=== PATIENT | male | born 1945 | race Caucasian/White ===

== ENCOUNTER 2018-03-25 | Inpatient (IN) | payer OTHER ==
[2018-03-25] VITALS (7 sets, daily range): BP systolic 101–136; BP diastolic 57–80
--- NOTE | ~2018-03-25 | CON ---
[place], [place] REPORT OF CONSULTATION NAME: CHUNG ARNOLD UNIT #: [id number] ROOM: 401 DOCTOR: MARY RENEE MD BIRTHDATE: [birth year] DOS: 03/25/2018 HISTORY OF PRESENT ILLNESS: This is a 72-year-old patient who presented with history of profound anemia, GI bleed, history of Coumadin toxicity few days ago and that has been corrected to 2.6 INR and the patient has been sent in for further evaluation through the Emergency Room if guaiac positivity. At such a time a panel of blood work was done and there was a CBC on 03/25/2018 is reviewed. White blood cell of 5, H and H of 7.9 and 25, transfusion has been organized with a PT of 28.8 second, and INR 2.6. PAST MEDICAL HISTORY: Associated with GI bleed. INR toxicity, hyperlipidemia, coronary artery disease, hypertension, congestive heart failure, history in the past, atrial fibrillation. PAST SURGICAL HISTORY: Aortic valve prosthesis, prostatectomy, lung surgery, details unknown, CABG. SOCIAL HISTORY: Nonsmoker, nonalcohol consumer. FAMILY HISTORY: Noncontributory, supportive family at bedside. ALLERGIES: DIGOXIN. MEDICATIONS: List has been reviewed. Coumadin at the present time on hold. The patient on omeprazole 20 mg daily. REVIEW OF SYSTEMS: HEAD, EYES, EARS, NOSE, AND THROAT: Denies double vision, blurred vision. RESPIRATORY: Denies acute shortness of breath. CARDIOVASCULAR: Denies chest pain. DIGESTIVE SYSTEM: GI bleed. PHYSICAL EXAMINATION: VITAL SIGNS: Stable. Alert and coherent. HEAD, EYES, EARS, NOSE, AND THROAT: Head normocephalic, nontraumatic. Mouth and buccal mucosa benign. NECK: Supple, no thyromegaly. No cervical lymphadenopathy. CHEST: Symmetric anatomy, equal expansion. No wheeze, no rhonchi. HEART: Irregular irregularity and moderate ventricular response atrial fibrillation. ABDOMEN: Soft. No hepato-organomegaly. Bowel sounds present. No pulsatile mass. EXTREMITIES: No cyanosis, no pedal edema. NEUROLOGIC: Alert, oriented to time, place, and person. LABORATORY DATA: Reviewed, records reviewed. IMPRESSION: Gastrointestinal bleed, history of Coumadin toxicity in the past and correction, atrial fibrillation, hyperlipidemia, and hypertension. [place], [place] REPORT OF CONSULTATION NAME: CHUNG ARNOLD UNIT #: [id number] ROOM: 401 DOCTOR: VÍCTOR MADRIGAL,MARY BIRTHDATE: [birth year] OTHER ADJUNCTIVE DIAGNOSES: As outlined in paragraph of past medical history including anemia, coronary artery disease. He is getting transfusion. PLAN AND DISCUSSION: We are going to proceed with the EGD, source of bleeding to be investigated. He has had recent colonoscopy. The patient has presented with GI bleed, anemia for transfusion. Today's procedure part of investigation is panendoscopy plus photographic series. PREMEDICATION: Propofol. SCOPE: Olympus forward-viewing gastroscope Q10 video. REPORT: After putting the patient in left lateral position and application of lubricant to the scope, the scope was introduced. Thereafter, under direct visualization, I advanced through the length of esophagus without difficulty. Small hiatal hernia was noticed. Gastric pouch was entered. Multiple areas of gastric erosions and small blood clots in the stomach was noticed. Photographed. No biopsy obtained due to the fact the patient's INR is still prolonged, duodenal free of active bleeding event. GI reflection confirms small hiatal hernia. Air was suctioned out. The patient was extubated, tolerated the procedure well. IMPRESSION: Small hiatal hernia, gastritis, gastric erosions, multiple small clots in the stomach. No active bleeding. PLAN AND DISCUSSION: We are going to withhold aspirin products and anticoagulants. We are going to proceed with soft diet and we are going to cover him with Protonix 40 mg IV b.i.d. in addition of Carafate 2 grams slurry q.i.d. for 2 weeks' duration and after that maintenance Protonix once a day. Apparently, omeprazole 20 mg is not helping the status, p.r.n. and reassessment of H and H and INR periodically. MARY RENEE MD CM:CONSTR:REPORT OF CONSULTATION 1603 04/03/18 0732 interface
--- NOTE | ~2018-03-25 | EKG ---
[place], [place] ELECTROCARDIOGRAM REPORT NAME: CHUNG ARNOLD UNIT #: [id number] ROOM: 401 DOCTOR: DUGLAS DRAFT REPORT BIRTHDATE: [birth year] [facility] Test Date: 2018-03-25 Test Time: 12:57:13 Pat Name: CHUNG ARNOLD Department: Room: 401 Gender: M Youth Pastor: SAI : 1945 Requested By: JOSE ALBERTO COATES Order Number: [id number] Reading MD: Mor Seymour MD Measurements Intervals Caret Rate: 76 P: -43 [place]: 135 QRS: -52 QRSD: 142 T: 129 QT: 435 QTc: 490 Interpretive Statements ATRIAL FIBRILLATION LVH with IVCD, LAD and secondary repol abnrm No previous ECG available for comparison Electronically Signed On 03-28-2018 8:23:58 PST by Mor Seymour MD CM:EKGRPT:ELECTROCARDIOGRAM REPORT [id number] JOSE ALBERTO ARDON DRAFT REPORT JOSE ALBERTO COATES M.D.
[2018-03-25] MEDS ORDERED: ATORVASTATIN CA10 M1 PO (12:12)
[2018-03-25] MEDS ORDERED: FERRACTIV IRON1 EACH PO (12:13)
[2018-03-25] MEDS ORDERED: CARVEDILOL25 MG PO (12:13)
[2018-03-25] MEDS ORDERED: VITAMIN D31000 UNIT PO (12:14)
[2018-03-25] MEDS ORDERED: TORSEMIDE20 MG PO (12:14)
[2018-03-25] MEDS ORDERED: HYDRALAZINE HYD50 MG PO (12:15)
[2018-03-25] MEDS ORDERED: INSPRA25 MG PO (12:15)
[2018-03-25] MEDS ORDERED: K-TAB20 MEQ PO (12:19)
[2018-03-25] MEDS ORDERED: OMEPRAZOLE MAGN20 MG PO (12:20)
[2018-03-25 12:27] LABS: BASO % 0.4 % (0.0-1.0); EOS # 0.1 10*3/uL (0.0-0.4); EOS % 1.6 % (1.0-4.0); HEMATOCRIT 25.1 % (42.0-52.0); HEMOGLOBIN 7.9 g/dl (14.0-18.0); LYMPH # 0.3 10*3/uL (1.3-4.4); LYMPH % 5.3 % (27.0-41.0); MEAN CELL VOLUME 88.4 fl (80.0-94.0); MEAN CORPUSCULAR HGB 27.8 pg (27.0-31.0); MEAN CORPUSCULAR HGB CONC 31.5 g/dl (33.0-37.0); MEAN PLATELET VOLUME 9.7 fl (9.6-12.3); MONO # 0.5 10*3/uL (0.1-1.0); NEUT # 4.2 10*3/uL (2.3-7.9); NEUT % 82.5 % (47.0-73.0); PLATELET COUNT AUTOMATED 167 10*3/uL (130-400); RED BLOOD COUNT 2.84 10*6/uL (4.50-5.90); RED CELL DISTRI WIDTH 15.6 % (0-14.5); WHITE BLOOD COUNT 5.1 10*3/uL (4.8-10.8)
[2018-03-25 12:35] LABS: INTERNATIONAL NORM RATIO 2.6 (2.0-3.5)
--- NOTE | 2018-03-25 14:19 | NUR ---
[facility] 72, admitted to , under the services of HEIDY Nathan DO with a diagnosis of GI BLEED. Chief complaint is DENIES. Patient arrived via bed from ER. Monitor applied. Initial assessment completed. Vital signs taken and recorded. HEIDY NATHAN DO notified of admission to the unit. Orders received. See assessment for past medical history, medications and allergies. Patient and/or family oriented to unit. [facility] visitation policy reviewed. Clothing/patient valuable form completed. KARTHIKEYAN PARDO
--- NOTE | 2018-03-25 15:11 | NUR ---
OFF FLOOR TO SURGERY
[2018-03-25 20:50] LABS: HEMATOCRIT 26.9 % (42.0-52.0); HEMOGLOBIN 8.9 g/dl (14.0-18.0)
[2018-03-26] VITALS: BP 127/73
[2018-03-26 06:28] LABS: BASO % 0.4 % (0.0-1.0); EOS # 0.1 10*3/uL (0.0-0.4); HEMATOCRIT 26.5 % (42.0-52.0); HEMOGLOBIN 8.5 g/dl (14.0-18.0); LYMPH # 0.4 10*3/uL (1.3-4.4); LYMPH % 7.8 % (27.0-41.0); MEAN CELL VOLUME 87.2 fl (80.0-94.0); MEAN CORPUSCULAR HGB CONC 32.1 g/dl (33.0-37.0); MONO # 0.6 10*3/uL (0.1-1.0); NEUT # 3.6 10*3/uL (2.3-7.9); NEUT % 76.6 % (47.0-73.0); PLATELET COUNT AUTOMATED 171 10*3/uL (130-400); RED BLOOD COUNT 3.04 10*6/uL (4.50-5.90); RED CELL DISTRI WIDTH 15.7 % (0-14.5); RETICULOCYTE % 0.96 % (0.50-2.50); WHITE BLOOD COUNT 4.7 10*3/uL (4.8-10.8)
[2018-03-26 06:56] LABS: INTERNATIONAL NORM RATIO 2.1 (2.0-3.5)
[2018-03-26 06:58] LABS: ALBUMIN 2.5 gm/dl (3.1-4.5); CREATININE 2.39 mg/dL (0.70-1.30); PHOSPHOROUS 2.7 mg/dL (2.5-4.9); POTASSIUM 3.3 mmol/L (3.5-5.1); TOTAL PROTEIN 7.1 gm/dL (6.4-8.2)
[2018-03-26 07:04] LABS: FREE T4 1.47 ng/dl (0.76-1.46); THYROID STIM HORMONE (HS) 0.946 uIU/ml (0.358-4.75)
[2018-03-26 08:00] VITALS: BP 114/70
--- NOTE | 2018-03-26 08:06 | NUR ---
24 HR CHART CHECK COMPLETE
--- NOTE | 2018-03-26 08:19 | NUR ---
SPOKE TO DR COTA AND REQUESTED CONTIUATION OF PTS HOME MEDS
[2018-03-26 09:43] LABS: FERRITIN 166.6 ng/mL (22.0-322.0)
[2018-03-26 12:00] VITALS: BP 140/84
[2018-03-26 12:11] LABS: BILIRUBIN NEGATIVE (NEGATIVE); BLOOD NEGATIVE (NEGATIVE); CLARITY CLEAR (CLEAR); COLOR YELLOW (YELLOW); GLUCOSE NEGATIVE (NEGATIVE); KETONE NEGATIVE (NEGATIVE); LEUKO ESTERASE NEGATIVE (NEGATIVE); NITRITE NEGATIVE (NEGATIVE); UROBILINOGEN 0.2 E.U./dl (0.2-1.0)
[2018-03-26 12:18] LABS: BACTERIA TRACE
--- NOTE | 2018-03-26 15:02 | NUR ---
Shift chart check completed.24 HR chart check completed.
[2018-03-26 16:00] VITALS: BP 133/86
--- NOTE | 2018-03-26 16:31 | NUR ---
ON ASSESSMENT PATIENT IS ALERT, AND ORIENTED. NO VOICED COMPLAINTS OF PAIN. HE REPORTS A FORMED DRK BROWN STOOL TODAY.
--- NOTE | 2018-03-26 18:51 | NUR ---
THIS PATIENT HAS MEDS ORDERED (LOOKS LIKE ORDERED VIA MED REC) TORSEMIDE IS PRN BUT THERE IS NO FREQUENCY NOR PRN REASON. ALSO THERE IS A NON-FORMULARY MED EPLERENONE THAT PATIENT HAS NOT BEEN RECEIVING. PHARMACY SAYS ITS A CLASS OF MEDS LIKE SPIRONOLACTONE.......
[2018-03-26 20:00] VITALS: BP 118/68
[2018-03-27] VITALS: BP 134/74
[2018-03-27 05:12] VITALS: BP 144/78
--- NOTE | 2018-03-27 07:34 | NUR ---
24 CHART CHECK COMPLETE
[2018-03-27 07:41] LABS: BASO % 0.6 % (0.0-1.0); EOS # 0.2 10*3/uL (0.0-0.4); HEMATOCRIT 27.3 % (42.0-52.0); HEMOGLOBIN 8.8 g/dl (14.0-18.0); LYMPH # 0.3 10*3/uL (1.3-4.4); LYMPH % 5.8 % (27.0-41.0); MEAN CELL VOLUME 87.5 fl (80.0-94.0); MEAN CORPUSCULAR HGB 28.2 pg (27.0-31.0); MEAN CORPUSCULAR HGB CONC 32.2 g/dl (33.0-37.0); MEAN PLATELET VOLUME 10.6 fl (9.6-12.3); MONO # 0.5 10*3/uL (0.1-1.0); MONO % 10.4 % (3.0-9.0); NEUT % 79.8 % (47.0-73.0); PLATELET COUNT AUTOMATED 180 10*3/uL (130-400); RED BLOOD COUNT 3.12 10*6/uL (4.50-5.90); RED CELL DISTRI WIDTH 15.6 % (0-14.5)
[2018-03-27 07:47] LABS: CREATININE 2.31 mg/dL (0.70-1.30); POTASSIUM 3.6 mmol/L (3.5-5.1)
[2018-03-27 08:00] VITALS: BP 128/68
[2018-03-27] MEDS ORDERED: COUMADIN2 M1 PO (08:36)
--- NOTE | 2018-03-27 09:00 | NUR ---
Storage Manager in to talk to patient. Patient states lives at home with alone. There are few steps in the home. Physician: valente win [facility] health services: none Patient's level of ADLs: INDEPENDENT Patient has working utilities: all working DME: cane Follow-up physician's appointment after d/c: will be made by hospitalist nurse director upon discharge Does patient want to access PORTAL?: no Discharge plan discussed with patient, patient lives at home alone, he states he is independent in adls and ambulation, occasionally uses a cane, drives, patient states he will be going back home when able and denies any home needs. KRYSTLE GIBBS
[2018-03-27 12:00] VITALS: BP 135/72
--- NOTE | 2018-03-27 15:30 | NUR ---
Discharge instructions reviewed with patient/family. Patient receptive and verbalizes understanding. Follow-up care arranged. Written instructions given to patient/family. LITA BRADFORD
== END 2018-03-27 15:30 | disposition home or self-care (01) | DRG 377 ==
PROVIDERS: Emergency Medicine; Internal Medicine; Registered Nurse; ADMIT Internal Medicine
PROC: 30233N1 Transfusion of Nonautologous Red Blood Cells into Peripheral Vein, Percutaneous Approach (ICD-10-PCS; principal; 2018-03-25)
PROC: 0DJ08ZZ Inspection of Upper Intestinal Tract, Via Natural or Artificial Opening Endoscopic (ICD-10-PCS; principal; 2018-03-25)
DX: K25.4 Chronic or unspecified gastric ulcer with hemorrhage (principal); E43 Unspecified severe protein-calorie malnutrition; I13.0 Hypertensive heart and chronic kidney disease with heart failure and stage 1 through stage 4 chronic kidney disease, or unspecified chronic kidney disease; D64.9 Anemia, unspecified; E78.00 Pure hypercholesterolemia, unspecified; I25.10 Atherosclerotic heart disease of native coronary artery without angina pectoris; I50.9 Heart failure, unspecified; E78.5 Hyperlipidemia, unspecified; K44.9 Diaphragmatic hernia without obstruction or gangrene; N40.0 Benign prostatic hyperplasia without lower urinary tract symptoms; R79.1 Abnormal coagulation profile; N18.3 Chronic kidney disease, stage 3 (moderate); I48.91 Unspecified atrial fibrillation; Z88.8 Allergy status to other drugs, medicaments and biological substances; Z95.1 Presence of aortocoronary bypass graft; Z95.2 Presence of prosthetic heart valve; Z90.79 Acquired absence of other genital organ(s); Z80.1 Family history of malignant neoplasm of trachea, bronchus and lung; Z79.899 Other long term (current) drug therapy

== ENCOUNTER 2018-04-02 13:52 | Emergency (ER) | payer OTHER ==
[~2018-04-02] VITALS: Ht 170.1 cm; Wt 70.3 kg
--- NOTE | ~2018-04-02 | EKG ---
[place], [place] ELECTROCARDIOGRAM REPORT NAME: CHUNG ARNOLD UNIT #: [id number] ROOM: DOCTOR: EPIPHANY DRAFT REPORT BIRTHDATE: [birth year] [facility] Test Date: 2018-04-02 Test Time: 14:09:37 Pat Name: CHUNG ARNOLD Department: Room: Gender: Donor Services Technician: : 1945 Requested By: PAVAN BRADY Order Number: [id number] Reading MD: Dennis Ibrahim MD Measurements Intervals [place]ola Rate: 71 P: FL: 47 QRS: -50 QRSD: 136 T: 116 QT: 416 QTc: 453 Interpretive Statements Atrial-paced complexes Nonspecific IVCD with LAD Compared to ECG 03/25/2018 12:57:13 Atrial fibrillation no longer present Electronically Signed On 04-02-2018 17:30:18 PST by Dennis Ibrahim MD CM:EKGRPT:ELECTROCARDIOGRAM REPORT [id number] 1730 PAVAN DIETRICH DRAFT REPORT PAVAN BRADY DO
[~2018-04-02 13:52] MED LIST: ATORVASTATIN CA10 M1 PO; CARVEDILOL25 MG PO; COUMADIN2 M1 PO; FERRACTIV IRON1 EACH PO; HYDRALAZINE HYD50 MG PO; INSPRA25 MG PO; K-TAB20 MEQ PO; OMEPRAZOLE MAGN20 MG PO; TORSEMIDE20 MG PO; VITAMIN D31000 UNIT PO
[2018-04-02 14:27] LABS: BASO % 0.8 % (0.0-1.0); EOS # 0.1 10*3/uL (0.0-0.4); EOS % 1.4 % (1.0-4.0); HEMATOCRIT 25.9 % (42.0-52.0); HEMOGLOBIN 8.4 g/dl (14.0-18.0); LYMPH # 0.3 10*3/uL (1.3-4.4); LYMPH % 5.5 % (27.0-41.0); MEAN CORPUSCULAR HGB 28.9 pg (27.0-31.0); MEAN CORPUSCULAR HGB CONC 32.4 g/dl (33.0-37.0); MEAN PLATELET VOLUME 10.5 fl (9.6-12.3); MONO # 0.5 10*3/uL (0.1-1.0); MONO % 10.5 % (3.0-9.0); NEUT % 81.4 % (47.0-73.0); PLATELET COUNT AUTOMATED 176 10*3/uL (130-400); RED BLOOD COUNT 2.91 10*6/uL (4.50-5.90); WHITE BLOOD COUNT 4.9 10*3/uL (4.8-10.8)
[2018-04-02 14:40] LABS: ACT PARTIAL THROMBO TIME 42.3 SECONDS (20.8-31.5); INTERNATIONAL NORM RATIO 1.9 (2.0-3.5)
[2018-04-02 14:45] LABS: ALBUMIN 2.3 gm/dl (3.1-4.5); CREATININE 2.1 mg/dL (0.70-1.30); POTASSIUM 4.2 mmol/L (3.5-5.1); TOTAL PROTEIN 7.1 gm/dL (6.4-8.2)
[2018-04-02 14:46] LABS: TROPONIN I 0.016 ng/ml (<0.045)
[2018-04-02 17:31] LABS: BILIRUBIN NEGATIVE (NEGATIVE); BLOOD NEGATIVE (NEGATIVE); CLARITY CLEAR (CLEAR); COLOR YELLOW (YELLOW); GLUCOSE NEGATIVE (NEGATIVE); KETONE NEGATIVE (NEGATIVE); LEUKO ESTERASE NEGATIVE (NEGATIVE); NITRITE NEGATIVE (NEGATIVE); SPECIFIC GRAVITY 1.015 (1.005-1.030); UROBILINOGEN 0.2 E.U./dl (0.2-1.0)
[2018-04-02 17:41] LABS: BACTERIA TRACE; WBC 0-2 wbc/hpf (0-5)
== END 2018-04-03 08:53 | disposition short-term general hospital (02) ==
LOC: ED 13:52
PROVIDERS: Emergency Medicine
DX: R06.00 Dyspnea, unspecified (principal); I13.0 Hypertensive heart and chronic kidney disease with heart failure and stage 1 through stage 4 chronic kidney disease, or unspecified chronic kidney disease; N18.9 Chronic kidney disease, unspecified; I50.9 Heart failure, unspecified; E78.00 Pure hypercholesterolemia, unspecified; Z88.8 Allergy status to other drugs, medicaments and biological substances; Z79.899 Other long term (current) drug therapy; Z95.1 Presence of aortocoronary bypass graft